=== PATIENT | female | born 1980 | race African-American/Black ===

== ENCOUNTER 2017-12-12 07:02 | Emergency (ER) | payer SELFPAY ==
[~2017-12-12] VITALS: Ht 165.1 cm; Wt 136.1 kg
[2017-12-12] MEDS ORDERED: BENZ100C PO (07:45)
[2017-12-12] MEDS ORDERED: NEO/5DRO OD (07:45)
--- NOTE | 2017-12-12 07:45 | PHYS DOC ---
Past History Past Medical History: Hypotension Smoking: Non-smoker Adult General Chief Complaint Chief Complaint: EYE PROBLEMS HPI HPI 37-year-old female patient states she has had nasal congestion and cough on subjective fever for the last few days right eye redness for the last 3 days with yellow discharge and unable to open her eye in the morning. She complaining of foreign body sensation without change of vision. Patient states she started to have mild redness of the eye since this morning. Review of Systems Review of Systems Constitutional: Denies fever or chills [] Eyes: Denies change in visual acuity, reports redness and eye discharge] HENT: Reports nasal congestion [] Respiratory: Reports cough Cardiovascular: No additional information not addressed in HPI [] GI: Denies abdominal pain, nausea, vomiting, bloody stools or diarrhea [] : Denies dysuria or hematuria [] Musculoskeletal: Denies back pain or joint pain [] Integument: Denies rash or skin lesions [] Neurologic: Denies headache, focal weakness or sensory changes [] Endocrine: Denies polyuria or polydipsia [] All other systems were reviewed and found to be within normal limits, except as documented in this note. Allergies Allergies Allergies Coded Allergies Type Severity Reaction Last Updated Verified doxycycline Allergy Intermediate RASH 12/12/17 Yes Physical Exam Physical Exam Constitutional: Well developed, well nourished, mild distress, non-toxic appearance. [] HENT: Normocephalic, atraumatic, bilateral external ears normal, oropharynx moist, no oral exudates, nasal congestion Eyes: PERRLA, EOMI, conjunctiva normal, no discharge. [] Neck: Normal range of motion, no tenderness, supple, no stridor. [] Cardiovascular:Heart rate regular rhythm, no murmur [] Lungs & Thorax: Bilateral breath sounds clear to auscultation [] Neurologic: Alert and oriented X 3, normal motor function, normal sensory function, no focal deficits noted. [] Psychologic: Affect normal, judgement normal, mood normal. [] EKG EKG [] Radiology/Procedures Radiology/Procedures [] Course & Med Decision Making Course & Med Decision Making discharge: I've spoken with the patient and/or caregivers. I've explained the patient's condition, diagnosis and treatment plan based on information available to me at this time. I've answered the patient's and/or caregivers questions and addressed any concerns. The patient and/or caregivers have a good understanding the patient's diagnosis, condition and treatment plan as can be expected at this point. Vital signs have been stabilized. The patient's condition is stable for discharge from the emergency department. The patient will pursue further outpatient evaluation with her primary care provider or other designated consulting physician as outlined in the discharge instructions. Patient and/or caregivers are agreeable to this plan of care and follow-up instructions have been explained in detail. The patient and/or caregivers have received these instructions in written format and expressed understanding of these discharge instructions. The patient and her caregivers are aware that if any significant change in condition or worsening of symptoms should prompt him to immediately return to this of the closest emergency department. If an emergent department is not readily available I would encourage him to call 911. Dragon Disclaimer Dragon Disclaimer This electronic medical record was generated, in whole or in part, using a voice recognition dictation system. Departure Departure: Impression: Primary Impression: Acute conjunctivitis of right eye Additional Impression: Upper respiratory infection Disposition: HOME, SELF-CARE (at 0740) Condition: STABLE Referrals: NON,STAFF (PCP) Patient Instructions: Bacterial Conjunctivitis, Upper Respiratory Infection, Adult Additional Instructions: Drink plenty of liquids Follow-up with your primary care physician in 3-5 days Return to ER if not getting better Scripts Benzonatate (TESSALON PERLE) 100 Mg Capsule 1 CAP PO TID, #30 CAP Prov: REINA CORREA MD 12/12/17 Gurdeep/Polymyx B Sulf/Dexameth (MAXITROL EYE DROPS) 5 Ml Drops.susp 2 DROP OD QID for 7 Days, #5 ML Prov: REINA CORREA MD 12/12/17 Problem Qualifiers RENIA CORREA MD Dec 12, 2017 07:45
[2017-12-12 07:50] VITALS: BP 131/90
== END 2017-12-12 07:55 | disposition home or self-care (01) ==
LOC: ER 07:02
DX: J06.9 Acute upper respiratory infection, unspecified (principal); H10.31 Unspecified acute conjunctivitis, right eye; Z88.1 Allergy status to other antibiotic agents
CPT/HCPCS: 99283

== ENCOUNTER 2019-07-13 14:00 | Emergency (ER) | payer OTHER ==
[~2019-07-13] VITALS: Ht 165.1 cm; Wt 140.0 kg
[~2019-07-13 14:00] MED LIST: BENZ100C PO; NEO/5DRO OD
[2019-07-13 14:54] LABS: BASO # 0.1 x10^3/uL (0.0-0.2); BASO % 1 % (0-3); EOS # 0.1 x10^3/uL (0.0-0.7); EOS % 2 % (0-3); HEMOGLOBIN 12.3 g/dL (12.0-15.5); LYMPH # 1.9 x10^3/uL (1.0-4.8); LYMPH % 22 % (24-48); MEAN CORPUSCULAR HEMOGLOBIN 27 pg (25-35); MEAN CORPUSCULAR HGB CONC 33 g/dL (31-37); MEAN CORPUSCULAR VOLUME 80 fL (79-100); MONO # 0.4 x10^3/uL (0.0-1.1); MONO % 5 % (0-9); NEUT % 70 % (31-73); PLATELET COUNT 343 x10^3/uL (140-400); RED BLOOD COUNT 4.63 x10^6/uL (3.50-5.40); RED CELL DISTRIBUTION WIDTH 16.2 % (11.5-14.5); WHITE BLOOD COUNT 8.5 x10^3/uL (4.0-11.0)
--- NOTE | 2019-07-13 15:16 | RAD ---
OB ultrasound study less than 14 weeks with transvaginal exam Clinical indications: Vaginal bleeding during . LMP was May 30, 2019 which corresponds to gestational age of 6 weeks 2 days. Transvaginal exam: The uterus is anteverted in position. The longitudinal AP and transverse dimensions of the uterus are 8.8 cm and 4.6 centers of 5.6 cm respectively. There is an early gestational sac within the fundal portion of the endometrial canal. Small yolk sac is seen but no pole or heartbeat is seen yet. There is a small implantation bleed inferiorly measuring 11 mm in greatest dimension. No free fluid is seen within the cul-de-sac. The right ovary measures 2.5 cm and 2.0 cm and 2.3 cm in size. Color Doppler flow is seen within the right ovary. There is a 13 mm cyst within the right ovary. The left ovary measures 2.1 cm and 1.6 cm and 2.2 cm in size and is normal. Color Doppler flow is seen within left ovary. No adnexal mass is seen. IMPRESSION: Early 5 week gestational sac within the fundal portion of the uterus. Yolk sac is seen but no pole or heartbeat is seen yet. Correlation with serial quantitative beta-hCGs may be helpful. 13 mm corpus luteum cyst of the right ovary. Electronically signed by: Flako Chamberlain MD (07/13/2019 3:13 PM) [facility]
[2019-07-13 16:00] VITALS: BP 129/81
[2019-07-13 16:57] LABS: BILIRUBIN,URINE NEG (NEG); CLARITY,URINE CLOUDY; COLOR,URINE YELLOW; GLUCOSE,URINE NEG (NEG); NITRITE,URINE NEG (NEG); UROBILINOGEN,URINE 0.2 mg/dL (0.2 mg/dL)
[2019-07-13 16:58] LABS: BACTERIA,URINE FEW /HPF (0-FEW); SQUAMOUS EPITHELIAL CELL,UR FEW /LPF; WBC,URINE RARE /HPF (0-4)
--- NOTE | 2019-07-13 17:04 | PHYS DOC ---
Past History Past Medical History: Hypertension Past Surgical History: No Surgical History Smoking: Non-smoker Alcohol Use: None Drug Use: None Adult General Chief Complaint Chief Complaint: VAGINAL BLEEDING HPI HPI Patient is a 38 yo f wtih cc of vaginal spotting and abdominal cramping pt last menstrual period last week of april. 05/30/19. Patient did have some spotting earlier in the day and not even required to change one pad. No urinary symptoms currently doing okay just wanted to get checked out. Review of Systems Review of Systems Constitutional: Denies fever or chills [] Eyes: Denies change in visual acuity, redness, or eye pain [] H Musculoskeletal: Denies back pain or joint pain [] Integument: Denies rash or skin lesions [] Neurologic: Denies headache, focal weakness or sensory changes [] Endocrine: Denies polyuria or polydipsia [] All other systems were reviewed and found to be within normal limits, except as documented in this note. Allergies Allergies Allergies Coded Allergies Type Severity Reaction Last Updated Verified doxycycline Allergy Intermediate RASH 12/12/17 Yes Physical Exam Physical Exam Constitutional: Well developed, well nourished, no acute distress, non-toxic appearance. [] HENT: Normocephalic, atraumatic, bilateral external ears normal, oropharynx moist, no oral exudates, nose normal. [] Eyes: PERRLA, EOMI, conjunctiva normal, no discharge. [] Neck: Normal range of motion, no tenderness, supple, no stridor. [] Pulmonary: Normal respiratory effort no increased work of breathing no obvious chest wall trauma Abdomen: Bowel sounds normal, soft, no tenderness, no masses, no pulsatile masses. [] Skin: Warm, dry, no erythema, no rash. [] Back: No tenderness, no CVA tenderness. [] Extremities: No tenderness, no cyanosis, no clubbing, ROM intact, no edema. [] Neurologic: Alert and oriented X 3, normal motor function, normal sensory function, no focal deficits noted. [] Psychologic: Affect normal, judgement normal, mood normal. [] Current Patient Data Vital Signs Vital Signs Date Time Temp Pulse Resp B/P (MAP) Pulse Ox O2 Delivery O2 Flow Rate FiO2 07/13/19 16:00 85 18 129/81 (97) 98 Room Air 07/13/19 14:10 98.5 History of hypertension on hydrochlorothiazide Lab Results Laboratory Tests Test 07/13/19 14:30 07/13/19 15:24 White Blood Count 8.5 x10^3/uL (4.0-11.0) Red Blood Count 4.63 x10^6/uL (3.50-5.40) Hemoglobin 12.3 g/dL (12.0-15.5) Hematocrit 37.0 % (36.0-47.0) Mean Corpuscular Volume 80 fL (79-100) Mean Corpuscular Hemoglobin 27 pg (25-35) Mean Corpuscular Hemoglobin Concent 33 g/dL (31-37) Red Cell Distribution Width 16.2 % (11.5-14.5) H Platelet Count 343 x10^3/uL (140-400) Neutrophils (%) (Auto) 70 % (31-73) Lymphocytes (%) (Auto) 22 % (24-48) L Monocytes (%) (Auto) 5 % (0-9) Eosinophils (%) (Auto) 2 % (0-3) Basophils (%) (Auto) 1 % (0-3) Neutrophils # (Auto) 6.0 x10^3uL (1.8-7.7) Lymphocytes # (Auto) 1.9 x10^3/uL (1.0-4.8) Monocytes # (Auto) 0.4 x10^3/uL (0.0-1.1) Eosinophils # (Auto) 0.1 x10^3/uL (0.0-0.7) Basophils # (Auto) 0.1 x10^3/uL (0.0-0.2) Maternal Serum HCG Beta Subunit 4041 mIU/mL (0-6) H Urine Collection Type Unknown Urine Color Yellow Urine Clarity Cloudy Urine pH 7.0 Urine Specific Ragland 1.015 Urine Protein Neg (NEG-TRACE) Urine Glucose (UA) Neg mg/dL (NEG) Urine Ketones (Stick) Neg mg/dL (NEG) Urine Blood Mod (NEG) Urine Nitrite Neg (NEG) Urine Bilirubin Neg (NEG) Urine Urobilinogen Dipstick 0.2 mg/dL (0.2 mg/dL) Urine Leukocyte Esterase Neg (NEG) Urine RBC 1-2 /HPF (0-2) Urine WBC Rare /HPF (0-4) Urine Squamous Epithelial Cells Few /LPF Urine Bacteria Few /HPF (0-FEW) EKG EKG [] Radiology/Procedures Radiology/Procedures [] Impressions: Transvaginal exam: The uterus is anteverted in position. The longitudinal AP and transverse dimensions of the uterus are 8.8 cm and 4.6 centers of 5.6 cm respectively. There is an early gestational sac within the fundal portion of the endometrial canal. Small yolk sac is seen but no pole or heartbeat is seen yet. There is a small implantation bleed inferiorly measuring 11 mm in greatest dimension. No free fluid is seen within the cul-de-sac. The right ovary measures 2.5 cm and 2.0 cm and 2.3 cm in size. Color Doppler flow is seen within the right ovary. There is a 13 mm cyst within the right ovary. The left ovary measures 2.1 cm and 1.6 cm and 2.2 cm in size and is normal. Color Doppler flow is seen within left ovary. No adnexal mass is seen. IMPRESSION: Early 5 week gestational sac within the fundal portion of the uterus. Yolk sac is seen but no pole or heartbeat is seen yet. Correlation with serial quantitative beta-hCGs may be helpful. 13 mm corpus luteum cyst of the right ovary. Electronically signed by: Génesis Chamberlain MD (07/13/2019 3:13 PM) [facility] DICTATED AND SIGNED BY: GÉNESIS CHAMBERLAIN MD DATE: 07/13/19 1513 CC: ADRIANO ANDREWS MD; PCP,UNKNOWN ~ Course & Med Decision Making Course & Med Decision Making Pertinent Labs and Imaging studies reviewed. (See chart for details) []38-year-old female with first trimester vaginal bleeding. Of note patient is approximate 5 weeks by dates, ultrasound is reassuring patient is B+ she tells me urinalysis negative patient was reassured and advised on the importance of follow-up for repeat ultrasound next week. Discharged in stable condition with partner Dragon Disclaimer Dragon Disclaimer This electronic medical record was generated, in whole or in part, using a voice recognition dictation system. Departure Departure: Impression: Primary Impression: First trimester Disposition: HOME, SELF-CARE Condition: STABLE Patient Instructions: Vaginal Bleeding During , First Trimester ADRIANO ANDREWS MD Jul 13, 2019 17:04
== END 2019-07-13 16:00 | disposition home or self-care (01) ==
LOC: ER 14:00
DX: O20.8 Other hemorrhage in early pregnancy (principal); I10 Essential (primary) hypertension; Z88.1 Allergy status to other antibiotic agents; Z3A.01 Less than 8 weeks gestation of pregnancy
CPT/HCPCS: 36415; 76801; 76817; 81001; 84702; 85025; 86850; 86900; 86901; 99285